=== PATIENT | male | born 1985 | race Caucasian/White ===

== ENCOUNTER 2018-09-13 20:51 | Emergency (ER) | payer OTHER ==
[2018-09-13] MEDS: ALBUTEROL 0.083% (NEB) 2.5 MG/3 ML AMP NEB (21:27)
[2018-09-13] MEDS: METHYLPREDNISOLONE 125 MG INJ IM (22:32)
== END 2018-09-14 00:39 | disposition home or self-care (01) ==
LOC: E/R 09-14 00:39
DX: J45.901 Unspecified asthma with (acute) exacerbation (principal); I10 Essential (primary) hypertension; E11.9 Type 2 diabetes mellitus without complications; Z86.73 Personal history of transient ischemic attack (TIA), and cerebral infarction without residual deficits; Z79.84 Long term (current) use of oral hypoglycemic drugs; Z87.891 Personal history of nicotine dependence
CPT/HCPCS: 94664; 96372; 99284-25